=== PATIENT | male | born 1970 | race Caucasian/White ===

== ENCOUNTER 2020-01-03 23:28 | Inpatient (IN) ==
[2020-01-03] MEDS ORDERED: *HR* HYDROmorphone (PF) 1 MG/ML SYRINGE IVP ONE (23:49)
[2020-01-03] MEDS ORDERED: Ondansetron 4 MG/2 ML VIAL IVP STA (23:50)
[2020-01-03] MEDS ORDERED: 0.9 % Sodium Chloride 1,000 ML IVC ONE (23:51)
[2020-01-04 00:36] LABS: Basophils # 0.1 K/mcL (0.0-0.2); Basophils % 0.6 %; Eosinophils # 0.2 K/mcL (0.0-0.6); Eosinophils % 0.8 %; Hematocrit 44.4 % (37.5-50.1); Hemoglobin 14.6 g/dL (12.9-16.9); Immature Granulocytes % 0.6 % (0-4); Lymphocytes # 4.2 K/mcL (0.6-4.6); Lymphocytes % 20.4 %; Mean Corpuscular HGB Conc 32.9 g/dL (31.6-35.5); Mean Corpuscular Hemoglobin 30.3 pg (28.0-33.3); Mean Corpuscular Volume 92.1 fL (83.0-100.0); Mean Platelet Volume 11.2 fL (9.4-12.4); Monocytes # 2.6 K/mcL (0.0-1.3); Monocytes % 12.5 %; Neutrophils # 13.4 K/mcL (1.6-8.9); Platelet Count 275 K/mcL (140-400); Red Blood Count 4.82 M/mcL (4.19-5.50); Segmented Neutrophils % 65.1 %; White Blood Count 20.6 K/mcL (4.3-11.1)
[2020-01-04 00:54] LABS: Alanine Aminotransferase 16 Units/L (7-52); Albumin 4.4 g/dL (3.5-5.7); Albumin/Globulin Ratio 1.6 (1.1-2.2); Alkaline Phosphatase 77 Units/L (34-104); Aspartate Amino Transferase 11 Units/L (13-39); BUN/Creatinine Ratio 11 (6-26); Bilirubin,Total 0.7 mg/dL (0.3-1.0); Blood Urea Nitrogen 13 mg/dL (6-20); C-Reactive Protein 236 mg/L (Less than 10); Calcium 9.3 mg/dL (8.6-10.3); Carbon Dioxide 22 mEq/L (23-29); Chloride 103 mEq/L (98-107); Globulin 2.8 g/dL (2.4-3.5); Glucose 80 mg/dL (70-105); Osmolality,Calculated 279 (280-300); Potassium 3.6 mEq/L (3.5-5.1); Sodium 135 mEq/L (136-145); Total Protein 7.2 g/dL (6.4-8.9); eGFR For African Americans > 60 (> 60); eGFR For Non-African Americans > 60 (> 60)
[2020-01-04] MEDS ORDERED: Piperacillin/Tazobactam 3.375 GM in Water for inj. (sterile) 20 ML IVP ONE (01:15)
[2020-01-04] MEDS ORDERED: Ketorolac 30 MG/ML VIAL IVP PRN (01:53)
[2020-01-04] MEDS ORDERED: Naloxone 0.4 MG/ML INJ IVP PRN (01:53)
[2020-01-04] MEDS ORDERED: Ondansetron 4 MG/2 ML VIAL IVP PRN (01:53)
[2020-01-04] MEDS ORDERED: Vancomycin 1,750 MG in 0.9 % Sodium Chloride 250 ML IVPB SCH ×2 (02:00→05:00)
[2020-01-04] MEDS ORDERED: Vancomycin 2,000 MG/520 ML IV.SOLN IVPB ONE (02:00)
[2020-01-04] MEDS: 0.9 % Sodium Chloride 1,000 ML IVC SCH ×2 (02:39→09:59)
[2020-01-04] MEDS: Gabapentin 300 MG CAPSULE PO SCH ×4 (09:53→20:34)
[2020-01-04] MEDS: Aspirin Enteric Coated 81 MG Tablet PO SCH ×2 (09:53→20:34)
[2020-01-04] MEDS: Piperacillin/Tazobactam 3.375 GM in 0.9 % Sodium Chloride Mini Bag 100 ML IVPB SCH ×2 (09:53→17:43)
[2020-01-04 11:23] LABS: Basophils # 0.1 K/mcL (0.0-0.2); Basophils % 0.6 %; Eosinophils # 0.3 K/mcL (0.0-0.6); Eosinophils % 2.3 %; Hematocrit 39.6 % (37.5-50.1); Immature Granulocytes % 0.6 % (0-4); Lymphocytes # 2.5 K/mcL (0.6-4.6); Lymphocytes % 17.4 %; Mean Corpuscular HGB Conc 32.6 g/dL (31.6-35.5); Mean Corpuscular Hemoglobin 30.9 pg (28.0-33.3); Mean Corpuscular Volume 94.7 fL (83.0-100.0); Monocytes # 0.9 K/mcL (0.0-1.3); Monocytes % 6.5 %; Neutrophils # 10.6 K/mcL (1.6-8.9); Platelet Count 218 K/mcL (140-400); Red Blood Count 4.18 M/mcL (4.19-5.50); Segmented Neutrophils % 72.6 %; White Blood Count 14.5 K/mcL (4.3-11.1)
[2020-01-04 11:25] LABS: Hemoglobin 12.9 g/dL (12.9-16.9); INR 1.3; Prothrombin Time 14.3 Seconds (9.4-12.1)
[2020-01-04 11:28] LABS: Activated Partial Thrombo Time 28.4 Seconds (26.0-36.0)
[2020-01-04 11:42] LABS: Alanine Aminotransferase 11 Units/L (7-52); Albumin 3.6 g/dL (3.5-5.7); Albumin/Globulin Ratio 1.4 (1.1-2.2); Alkaline Phosphatase 62 Units/L (34-104); Aspartate Amino Transferase 9 Units/L (13-39); BUN/Creatinine Ratio 12 (6-26); Bilirubin,Total 0.7 mg/dL (0.3-1.0); Blood Urea Nitrogen 13 mg/dL (6-20); Calcium 8.4 mg/dL (8.6-10.3); Carbon Dioxide 23 mEq/L (23-29); Chloride 105 mEq/L (98-107); Globulin 2.6 g/dL (2.4-3.5); Glucose 153 mg/dL (70-105); Osmolality,Calculated 281 (280-300); Potassium 3.7 mEq/L (3.5-5.1); Sodium 134 mEq/L (136-145); Total Protein 6.2 g/dL (6.4-8.9); eGFR For African Americans > 60 (> 60); eGFR For Non-African Americans > 60 (> 60)
[2020-01-04] MEDS: Vancomycin 1,500 MG/265 ML IV.SOLN IVPB SCH (13:50)
[2020-01-05] MEDS: Piperacillin/Tazobactam 3.375 GM in 0.9 % Sodium Chloride Mini Bag 100 ML IVPB SCH ×3 (00:31→17:31)
[2020-01-05] MEDS: Vancomycin 1,500 MG/265 ML IV.SOLN IVPB SCH (02:09)
[2020-01-05 05:56] LABS: Hematocrit 37.9 % (37.5-50.1); Hemoglobin 12.1 g/dL (12.9-16.9); Mean Corpuscular HGB Conc 31.9 g/dL (31.6-35.5); Mean Corpuscular Hemoglobin 30.1 pg (28.0-33.3); Mean Corpuscular Volume 94.3 fL (83.0-100.0); Mean Platelet Volume 11.2 fL (9.4-12.4); Platelet Count 216 K/mcL (140-400); Red Blood Count 4.02 M/mcL (4.19-5.50); Red Cell Distribution Width 12.6 % (11.5-14.5); White Blood Count 11.5 K/mcL (4.3-11.1)
[2020-01-05 06:09] LABS: BUN/Creatinine Ratio 13 (6-26); Blood Urea Nitrogen 16 mg/dL (6-20); Calcium 8.1 mg/dL (8.6-10.3); Carbon Dioxide 22 mEq/L (23-29); Chloride 105 mEq/L (98-107); Glucose 103 mg/dL (70-105); Osmolality,Calculated 281 (280-300); Sodium 135 mEq/L (136-145); eGFR For African Americans > 60 (> 60); eGFR For Non-African Americans > 60 (> 60)
[2020-01-05] MEDS: Aspirin Enteric Coated 81 MG Tablet PO SCH (08:42)
[2020-01-05] MEDS: Gabapentin 300 MG CAPSULE PO SCH ×3 (08:43→21:04)
[2020-01-05 09:02] LABS: Acinetobacter baumannii by PCR Not Detected (Not Detect); Candida albicans by PCR Not Detected (Not Detect); Candida glabrata by PCR Not Detected (Not Detect); Candida krusei by PCR Not Detected (Not Detect); Candida parapsilosis by PCR Not Detected (Not Detect); Candida tropicalis by PCR Not Detected (Not Detect); Enterobacter cloacae Cmplx PCR Not Detected (Not Detect); Enterobacteriaceae by PCR Not Detected (Not Detect); Enterococcus by PCR Not Detected (Not Detect); Escherichia coli by PCR Not Detected (Not Detect); Klebsiella oxytoca by PCR Not Detected (Not Detect); Klebsiella pneumoniae by PCR Not Detected (Not Detect); Proteus by PCR Not Detected (Not Detect); Pseudomonas aeruginosa by PCR Not Detected (Not Detect); Serratia marcescens by PCR Not Detected (Not Detect); Staphylococcus aureus by PCR Not Detected (Not Detect); Staphylococcus by PCR Not Detected (Not Detect); Streptococcus agalactiae(B)PCR Not Detected (Not Detect); Streptococcus by PCR Not Detected (Not Detect); Streptococcus pneumoniae PCR Not Detected (Not Detect); Streptococcus pyogenes (A) PCR Not Detected (Not Detect)
[2020-01-05] MEDS ORDERED: Lidocaine -MPF 1% 5 ML AMPUL INFILT ONE (10:27)
[2020-01-05 12:36] LABS: INR 1.1; Prothrombin Time 12.2 Seconds (9.4-12.1)
[2020-01-05 12:39] LABS: Activated Partial Thrombo Time 26.7 Seconds (26.0-36.0)
[2020-01-05] MEDS: Vancomycin 2,000 MG/520 ML IV.SOLN IVPB SCH (15:33)
[2020-01-06] MEDS: Piperacillin/Tazobactam 3.375 GM in 0.9 % Sodium Chloride Mini Bag 100 ML IVPB SCH ×2 (00:38→08:48)
[2020-01-06] MEDS: Vancomycin 2,000 MG/520 ML IV.SOLN IVPB SCH ×2 (03:49→15:21)
[2020-01-06] MEDS: Gabapentin 300 MG CAPSULE PO SCH ×3 (08:44→21:03)
[2020-01-06 10:19] LABS: Source,Synovial Fluid LEFT HIP
[2020-01-06 13:02] LABS: Appearance,Synovial Fluid Cloudy (Clear-Hazy); Color,Synovial Fluid Red (Straw)
[2020-01-06] MEDS: cefTRIAXone 1,000 MG in Water for inj. (sterile) 10 ML IVP SCH (15:20)
[2020-01-07 04:04] LABS: Hematocrit 40.3 % (37.5-50.1); Hemoglobin 13.3 g/dL (12.9-16.9); Mean Corpuscular Hemoglobin 30.1 pg (28.0-33.3); Mean Corpuscular Volume 91.2 fL (83.0-100.0); Mean Platelet Volume 10.3 fL (9.4-12.4); Platelet Count 258 K/mcL (140-400); Red Blood Count 4.42 M/mcL (4.19-5.50); Red Cell Distribution Width 12.1 % (11.5-14.5); White Blood Count 9.1 K/mcL (4.3-11.1)
[2020-01-07 04:28] LABS: BUN/Creatinine Ratio 12 (6-26); Blood Urea Nitrogen 12 mg/dL (6-20); Calcium 9.1 mg/dL (8.6-10.3); Carbon Dioxide 21 mEq/L (23-29); Chloride 103 mEq/L (98-107); Glucose 114 mg/dL (70-105); Magnesium 2.1 mg/dL (1.6-2.6); Osmolality,Calculated 279 (280-300); Potassium 4.1 mEq/L (3.5-5.1); Sodium 134 mEq/L (136-145); eGFR For African Americans > 60 (> 60); eGFR For Non-African Americans > 60 (> 60)
[2020-01-07] MEDS: Vancomycin 2,000 MG/520 ML IV.SOLN IVPB SCH (04:30)
[2020-01-07] MEDS: Gabapentin 300 MG CAPSULE PO SCH ×3 (09:31→19:17)
[2020-01-07] MEDS: cefTRIAXone 1,000 MG in Water for inj. (sterile) 10 ML IVP SCH (09:31)
[2020-01-07 10:29] LABS: C-Reactive Protein 40 mg/L (Less than 10)
[2020-01-07] MEDS ORDERED: cefTRIAXone 1,000 MG in 0.9 % Sodium Chloride Mini Bag 100 ML IVPB ONE (11:32)
[2020-01-08 06:47] LABS: Hematocrit 41.2 % (37.5-50.1); Hemoglobin 13.7 g/dL (12.9-16.9); Mean Corpuscular HGB Conc 33.3 g/dL (31.6-35.5); Mean Corpuscular Volume 93.2 fL (83.0-100.0); Mean Platelet Volume 10.5 fL (9.4-12.4); Platelet Count 269 K/mcL (140-400); Red Blood Count 4.42 M/mcL (4.19-5.50); Red Cell Distribution Width 12.2 % (11.5-14.5); White Blood Count 9.1 K/mcL (4.3-11.1)
[2020-01-08 07:10] LABS: BUN/Creatinine Ratio 14 (6-26); Blood Urea Nitrogen 14 mg/dL (6-20); Calcium 9.4 mg/dL (8.6-10.3); Carbon Dioxide 23 mEq/L (23-29); Chloride 103 mEq/L (98-107); Glucose 100 mg/dL (70-105); Osmolality,Calculated 281 (280-300); Potassium 4.1 mEq/L (3.5-5.1); Sodium 135 mEq/L (136-145); eGFR For African Americans > 60 (> 60); eGFR For Non-African Americans > 60 (> 60)
[2020-01-08] MEDS: Gabapentin 300 MG CAPSULE PO SCH ×2 (08:32→15:13)
[2020-01-08] MEDS ORDERED: cefTRIAXone 2,000 MG in 0.9 % Sodium Chloride Mini Bag 100 ML IVPB SCH (09:00)
[2020-01-08] MEDS ORDERED: Acetaminophen 325 MG TABLET PO PRN ×2 (09:04→09:45)
[2020-01-08 10:32] VITALS: BP 140/82
[2020-01-08] MEDS ORDERED: levoFLOXacin 750 MG/150 ML 750 MG/150 ML BAG IVPB SCH (12:00)
[2020-01-08 12:30] LABS: C-Reactive Protein 31 mg/L (Less than 10)
== END 2020-01-08 16:30 | disposition home or self-care (01) | DRG 862 ==
LOC: EMEROOARM 23:28 → 3NENU 23:28 → SUATTDRO 01-04 01:45 → 3NENU 01-04 02:30
PROVIDERS: ADMIT Student in an Organized Health Care Education/Training Program; ATTEND Internal Medicine
PROC: IRFLUID (2020-01-06 12:00)